=== PATIENT | female | born 1945 | race Caucasian/White ===

== ENCOUNTER 2018-08-01 10:07 | Emergency (ER) | payer MEDICARE ==
[2018-08-01 10:28] LABS: ABSOLUTE BASOPHILS # (AUTO) 0.1 10^3/uL (0.0-0.2); ABSOLUTE EOSINOPHILS # (AUTO) 0.1 10^3/uL (0.0-0.6); ABSOLUTE LYMPHOCYTES (AUTO) 1.4 10^3/uL (0.5-4.7); ABSOLUTE NEUT (AUTO) 6.8 10^3/uL (1.7-8.2); BASOPHILS % (AUTO) 0.9 % (0-2); EOSINOPHILS % (AUTO) 0.9 % (0-6); HEMATOCRIT 40.4 % (36.0-47.0); HEMOGLOBIN 13.8 g/dL (12.0-15.5); MEAN CORPUSCULAR HEMOGLOBIN 30.8 pg (27.0-33.4); MEAN CORPUSCULAR HGB CONC 34.1 g/dL (32.0-36.0); MEAN CORPUSCULAR VOLUME 90 fl (80-97); MONOCYTES % (AUTO) 10.4 % (3-13); PLATELET COUNT 260 10^3/uL (150-450); RED BLOOD COUNT 4.47 10^6/uL (3.72-5.28); RED CELL DISTRIBUTION WIDTH 14.2 % (11.5-14.0); SEGMENTED NEUTROPHILS % (AUTO) 72.8 % (42-78); TOTAL CELLS COUNTED % (AUTO) 100 %; WHITE BLOOD COUNT 9.3 10^3/uL (4.0-10.5)
--- NOTE | 2018-08-01 11:10 | RADIOLOGY REPORT (SQ) ---
EXAM DESCRIPTION: CHEST SINGLE VIEW COMPLETED DATE/TIME: 08/01/2018 10:45 am REASON FOR STUDY: bed t1 db COMPARISON: None. NUMBER OF VIEWS: One view. TECHNIQUE: Single frontal radiographic view of the chest acquired. LIMITATIONS: Overlying support apparatus. AP portable. FINDINGS: LUNGS AND PLEURA: No opacities, masses or pneumothorax. No pleural effusion. Attenuated bl ood vessels and flattened kenton-diaphragms. MEDIASTINUM AND HILAR STRUCTURES: No masses. Contour normal. HEART AND VASCULAR STRUCTURES: Heart size upper limits normal. Normal vasculature. BONES: No acute findings. HARDWARE: None in the chest. OTHER: No other significant finding. IMPRESSION: COPD. NO ACUTE RADIOGRAPHIC FINDING IN THE CHEST. TECHNICAL DOCUMENTATION: JOB ID: [id number] [employer]- All Rights Reserved Reading location - IP/workstation name: [email or web address]
[2018-08-01 11:38] LABS: ALANINE AMINOTRANSFERASE 35 U/L (9-52); ALBUMIN 4.3 g/dL (3.5-5.0); ALKALINE PHOSPHATASE 92 U/L (38-126); ANION GAP 11 (5-19); ASPARTATE AMINO TRANSFERASE 22 U/L (14-36); BILIRUBIN,DIRECT 0.2 mg/dL (0.0-0.4); BILIRUBIN,TOTAL 0.6 mg/dL (0.2-1.3); BLOOD UREA NITROGEN 23 mg/dL (7-20); CALCIUM 9.4 mg/dL (8.4-10.2); CARBON DIOXIDE 23 mmol/L (22-30); CHLORIDE 105 mmol/L (98-107); CREATINE KINASE 30 U/L (30-135); GLUCOSE 126 mg/dL (75-110); LIPASE 135.6 U/L (23-300); POTASSIUM 4.4 mmol/L (3.6-5.0); SODIUM 138.6 mmol/L (137-145); TOTAL PROTEIN 7.3 g/dL (6.3-8.2)
[2018-08-01 11:48] LABS: CREATINE KINASE MB 0.77 ng/mL (<4.55); TROPONIN I 0.015 ng/mL
[2018-08-01 12:11] LABS: APPEARANCE,URINE CLEAR; BILIRUBIN,URINE NEGATIVE (NEGATIVE); COLOR,URINE YELLOW; GLUCOSE, URINE NEGATIVE (NEGATIVE); KETONES,URINE NEGATIVE (NEGATIVE); LEUKOCYTE ESTERASE,URINE NEGATIVE (NEGATIVE); NITRITE,URINE NEGATIVE (NEGATIVE); PROTEIN,URINE 100 mg/dL (NEGATIVE); URINE SPECIFIC GRAVITY 1.014; UROBILINOGEN,URINE NEGATIVE mg/dL (<2.0)
--- NOTE | 2018-08-01 12:32 | EKG REPORT ---
SEVERITY:- ABNORMAL ECG - COMPLETE AV BLOCK, A-RATE 0 LEFT BUNDLE BRANCH BLOCK : Confirmed by: Crissy Lugo MD 01-Aug-2018 12:32:37
--- NOTE | 2018-08-01 12:34 | EKG REPORT ---
SEVERITY:- ABNORMAL ECG - INCOMPLETE LEFT BUNDLE BRANCH BLOCK COMPLETE AV BLOCK, A-RATE 0 : Confirmed by: Crissy Lugo MD 01-Aug-2018 12:33:45
--- NOTE | 2018-08-01 13:45 | ER Document Report ---
ED General - General Chief Complaint: Arrhythmia Stated Complaint: DIFFICULTY BREATHING Time Seen by Provider: 08/01/18 10:22 Primary Care Provider: SOFÍA CAMP MD [Primary Care Provider] - Follow up as needed - HPI Patient complains to provider of: Arrhythmia difficulty in breathing Notes: Patient presents today via EMS concern for cardiac arrhythmia. Patient was seen at a local urgent [facility] and [place] for difficulty in breathing. Patient states over the last week having difficulty breathing and ambulating. Patient denies any fevers chills nausea vomiting diarrhea denies any chest pain or abdominal pain. Patient denies any past medical history states she only takes vitamins at home. Patient upon my evaluation is significantly hypertensive. Patient also is on the monitor was to have a third-degree heart block. Patient denies any weakness denies any syncope denies any trauma of the past few days. Patient otherwise resting comfortably, complaining of shortness of breath when ambulating. - Related Data Allergies/Adverse Reactions: No Known Allergies Allergy (Unverified 08/01/18 10:34) Past Medical History - Social History Smoking Status: Unknown if Ever Smoked Family History: Other Review of Systems - Review of Systems Constitutional: No symptoms reported EENT: No symptoms reported Cardiovascular: No symptoms reported Respiratory: Short of breath Gastrointestinal: No symptoms reported Genitourinary: No symptoms reported Female Genitourinary: No symptoms reported Musculoskeletal: No symptoms reported Skin: No symptoms reported Hematologic/Lymphatic: No symptoms reported Neurological/Psychological: No symptoms reported -: Yes All other systems reviewed and negative Physical Exam - Vital signs Vitals: Pulse Ox 97 08/01/18 10:09 Interpretation: Normal - General General appearance: Appears well, Alert - HEENT Head: Normocephalic, Atraumatic Eyes: Normal Pupils: PERRL - Respiratory Respiratory status: No respiratory distress Chest status: Nontender Breath sounds: Normal Chest palpation: Normal - Cardiovascular Rhythm: Regular Heart sounds: Normal auscultation Murmur: Yes Systolic murmur grade 1-6: 2 - Abdominal Inspection: Normal Distension: No distension Bowel sounds: Normal Tenderness: Nontender Organomegaly: No organomegaly - Back Back: Normal, Nontender - Extremities General upper extremity: Normal inspection, Nontender, Normal color, Normal ROM, Normal temperature General lower extremity: Normal inspection, Nontender, Normal color, Normal ROM, Normal temperature, Normal weight bearing. No: Donna's sign - Neurological Neuro grossly intact: Yes Cognition: Normal Orientation: AAOx4 [place] Coma Scale Eye Opening: Spontaneous [place] Coma Scale Verbal: Oriented [place] Coma Scale Motor: Obeys Commands [place] Coma Scale Total: 15 Speech: Normal Motor strength normal: LUE, RUE, LLE, RLE Sensory: Normal - Psychological Associated symptoms: Normal affect, Normal mood - Skin Skin Temperature: Warm Skin Moisture: Dry Skin Color: Normal Course - Re-evaluation Re-evalutation: 08/01/18 13:43 EKG again shows a third-degree heart block. Patient is significantly hypertensive otherwise asymptomatic from her third-degree heart block and being bradycardic heart rates 30-40. Discussed with Dr. Lugo recommends transfer discussed with Dr. Fink of [facility] who agrees to accept the patient. Patient during her stay here in ER has continued to remain asymptomatic. Blood pressure still is a significant hypertensive with systolics in the 200s diastolics in the 90s. At this time per special needs child caregiver Aleks will hold off any aggressive treatment. Pacer pads have been placed on the patient however we are currently not pacing her. Patient currently waiting for transport. - Vital Signs Vital signs: Temp Pulse Resp BP Pulse Ox 98.3 F 40 L 15 193/54 H 97 08/01/18 10:10 08/01/18 10:10 08/01/18 13:32 08/01/18 13:32 08/01/18 13:32 - Laboratory Result Diagrams: 08/01/18 10:13 08/01/18 10:42 Laboratory results interpreted by me: 08/01/18 08/01/18 08/01/18 10:13 10:42 11:40 RDW 14.2 H BUN 23 H Glucose 126 H Urine Protein 100 H Critical Care Note - Critical Care Note Total time excluding time spent on procedures (mins): 50 Comments: Time spent evaluating patient reviewing EKGs discussing with consulting facilities Discharge - Discharge Clinical Impression: Third degree heart block Hypertension Qualifiers: Hypertension type: unspecified Qualified Code(s): I10 - Essential (primary) hypertension Condition: Stable Disposition: [facility] Referrals: SOFÍA CAMP MD [Primary Care Provider] - Follow up as needed
[2018-08-01 14:32] VITALS: BP 196/52
== END 2018-08-01 15:17 | disposition short-term general hospital (02) ==
LOC: ER 10:07
DX: I44.2 Atrioventricular block, complete (principal); I10 Essential (primary) hypertension; R00.1 Bradycardia, unspecified; R06.02 Shortness of breath
CPT/HCPCS: 36415; 71045; 80053; 81001; 82550; 82553; 83690; 83735; 84484; 85025; 93005; 93010; 99291